=== PATIENT | female | born 1995 | race Caucasian/White ===

== ENCOUNTER 2018-08-26 15:13 | Inpatient (IN) ==
[2018-08-26] MEDS ORDERED: NS 1,000 ML IV ONE (16:06)
[2018-08-26] MEDS ORDERED: ZOFRAN IV ONE (16:06)
[2018-08-26 17:02] LABS: BASO# 0.02 X1000 (0.0-0.2); BASO% 0.2 % (0.0-0.8); EOS# 0.03 X1000 (0.0-0.7); EOS% 0.3 % (0.0-10.0); HEMATOCRIT 35.9 % (37.0-47.0); IMM GRAN# 0.02 X1000 (0.0-0.04); IMM GRAN% 0.2 % (0.0-0.5); LYMPH# 2.36 X1000 (1.2-3.4); LYMPH% 22.7 % (20.5-51.1); MCH 25.5 PG (27-31); MCHC 33.4 g/dL (33-37); MCV 76.2 FL (81-99); MONO# 0.78 X1000 (0.11-0.59); MONO% 7.5 % (1.7-9.3); MPV 9.9 FL (7.4-10.4); NEUT# 7.19 X1000 (1.4-6.5); NEUT% 69.1 % (42.2-75.2); PLT 367 X1000 (130-400); RBC 4.71 XMIL (4.2-5.4); RDW 14.3 % (11.5-14.5)
[2018-08-26 17:39] LABS: ACETAMINOPHEN < 1.2 ug/mL (10-30); AGAP 20; ALB/GLOB RATIO 1.4; ALBUMIN 4.6 g/dL (3.5-5.0); ALKALINE PHOSPHATASE 93 U/L (32-104); AMYLASE 26 U/L (20-200); BUN 19 mg/dL (8-22); CALCIUM 9.5 mg/dL (8.8-10.2); CHLORIDE 96 mmol/L (98-107); COSMO 275; CREATININE 2.1 mg/dL (0.5-0.9); ESTIMATED GFR 29; GLUCOSE 85 mg/dL (70-104); GOT 22 U/L (10-30); GPT 12 U/L (10-36); LIPASE 17 U/L (13-60); SALICYLATES < 3.00 mg/dL (3-10); SODIUM 137 mmol/L (136-145); TCO2 21 mmol/L (25-35); TOTAL BILIRUBIN 0.45 mg/dL (0.20-1.00); TOTAL PROTEIN 7.9 g/dL (6.3-8.3)
--- NOTE | 2018-08-26 17:55 | PROVIDER DOCUMENTATION ---
This chart was entered by Qiana King Scribe, acting as scribe for Mikel Rodas MD. HPI-Abdominal Pain/GI Problem - General Chief Complaint: Nausea/Vomiting Stated Complaint: DEHYDRATED/VOMITING Time Seen by Provider: 08/26/18 15:29 Source: patient Allergies/Adverse Reactions: Patient Allergies Allergy/AdvReac Type Severity Reaction Status Date / Time amoxicillin AdvReac ITCHING Verified 08/26/18 18:53 Home Medications: Home Medication List Medication Instructions Recorded Confirmed Last Taken Type NK [No Home Medications] 08/26/18 08/26/18 Unknown History - History of Present Illness-ABD Nature of Presenting Problems: 22 y/o female presents to ED with epigastric pain and N/V onset 2 days ago after ingesting 20 ounces of bleach. Pt reports hx depression/schizophrenia and multiple psych-related hospitalizations. Pt states she lost her apartment recently and has been living with her mother. Pt denies SI/HI. Pt reports she has hx methamphetamine abuse and she last used 2 weeks ago. Pt is alert and oriented. Abdominal Pain Onset Location: reports: epigastric Pain Radiation: reports: no radiation Quality of Pain: reports: sharp Severity in ED: reports: moderate Onset/Duration: reports: 2 days ago Timing: reports: still present Activities at Onset: reports: other (bleach ingestion) Exposure to sick contacts?: No Modifying Factors: improves with: nothing Associated Symptoms: reports: nausea, vomiting, other (epigastric pain) Last BM: unsure Dark Stools Present?: reports: none noticed Rectal Bleeding: reports: none Rectal Pain: reports: none Similar Symptoms Previously?: No Recently seen or treated by another doctor?: No Review of Systems - Adult - REVIEW OF SYSTEMS - ADULT Constitutional: denies: chills, fever Eyes: reports: no symptoms reported Ears, Nose, Mouth & Throat: reports: no symptoms reported Cardiovascular: denies: chest pain, palpitations Respiratory: denies: cough, shortness of breath Gastrointestinal: reports: abdominal pain, nausea, vomiting. denies: diarrhea Genitourinary: reports: no symptoms reported Musculoskeletal: denies: back pain, joint pain Integumentary: reports: no symptoms reported Neurological: denies: dizziness/vertigo, seizure Psychiatric: reports: no symptoms reported Endocrine: reports: no symptoms reported Hematologic/Lymphatic: reports: no symptoms reported Allergic/Immunologic: reports: no symptoms reported All Other Systems: Reviewed and Negative Past History - Adult - PAST MEDICAL HISTORY-ADULT Review of Records: reports: Old Records Reviewed, Nursing Assessment Review, Medications Reviewed Major Childhood Illnesses: reports: denies history Obstetrical/Gynecological: reports: PID/STD Psychiatric: reports: anxiety, depression, schizophrenia - PRIOR SURGERIES/PROCEDURES Surgical/Procedure History: reports: none - IMMUNIZATION STATUS Childhood Immunizations: See Nurse Assessment Flu Vaccine: See Nurse Assessment - FAMILY HISTORY Family History: reviewed, not pertinent - SOCIAL HISTORY Smoking: less than 1 pack/day Provider spent 3-5 mins advising pt. on dangers of tobacco.: Discussed manners to quit use, and f/u contacts for add'l counseling. Substance Use: none presently/history of abuse, amphetamines (meth) Alcohol Use Frequency: twice a week Living Situation: family Physical Exam-General - PHYSICAL EXAM-ADULT Initial Vital Signs Reviewed: Yes - CONSTITUTIONAL General Appearance: appears well, alert, anxious - EYES Eyes: PERRL/EOMI, pink conjunctivae - HEAD, EARS, NOSE, MOUTH & THROAT HENMT: normocephalic/atraumatic, moist mucous membranes, normal ENT inspection - NECK Neck: non-tender, full range of motion - RESPIRATORY Respiratory: chest non-tender, lungs clear, normal breath sounds - CARDIOVASCULAR Cardiovascular: normal peripheral pulses, regular rate, rhythm - GASTROINTESTINAL (ABDOMEN) Abdominal Exam: normal bowel sounds, non tender, soft - MUSCULOSKELETAL Back Exam: normal inspection, no CVA tenderness, no vertebral tenderness Extremity: normal range of motion, non-tender, normal gait - SKIN Integumentary: normal color, warm/dry - NEUROLOGIC Neurologic: grossly normal - PSYCHIATRIC Psych/Mental Status: normal mood/affect, normal thought content, normal thought process, oriented x 3, anxious Progress - PLAN OF CARE/RESULTS Progress/Plan/Lab Results: Vital Signs - 8 hr 08/26/18 15:14 Temperature 99.1 F Pulse Rate 99 H Respiratory Rate 22 Blood Pressure 145/75 O2 Sat by Pulse Oximetry 98 Orders Category Date Time Status FLAT/UPRIGHT ABD/1 VIEW CHEST [RAD] Stat Exams 08/26/18 16:08 Ordered cxr [CHEST-2 VIEWS] [RAD] Stat Exams 08/26/18 16:08 Ordered ACETAMINOPHEN [TDM] Stat Lab 08/26/18 16:06 Uncollected AMYLASE [CHEM] Stat Lab 08/26/18 16:07 Uncollected CBC WITH ELECTRONIC DIFF [HEME] Stat Lab 08/26/18 16:06 Uncollected CMP [COMPREHENSIVE METABOLIC PANEL] [CHEM] Stat Lab 08/26/18 16:06 Uncollected LIPASE [CHEM] Stat Lab 08/26/18 16:07 Uncollected SALICYLATES [TDM] Stat Lab 08/26/18 16:06 Uncollected URINE DRUG SCREEN Stat Lab 08/26/18 16:07 Uncollected 0.9% Sodium Chloride Inj [Ns] 1,000 ml Med 08/26/18 16:06 Active IV 999 mls/hr Ondansetron [Zofran] Med 08/26/18 16:06 Discontinued 8 mg IV NOW ONE Nursing staff consulted poison control at 15:20. Poison control recommended tox screen, GI consult, CBC/CMP, zofran, and fluids. Laboratory Tests 08/26/18 16:31 WBC 10.40 RBC 4.71 Hgb 12.0 Hct 35.9 L MCV 76.2 L MCH 25.5 L MCHC 33.4 RDW Std Deviation 14.3 Plt Count 367 MPV 9.9 Immature Gran % (Auto) 0.2 Neut % (Auto) 69.1 Lymph % (Auto) 22.7 Nelson % (Auto) 7.5 Eos % (Auto) 0.3 Baso % (Auto) 0.2 Immature Gran # (Auto) 0.02 Neut # (Auto) 7.19 H Lymph # (Auto) 2.36 Nelson # (Auto) 0.78 H Eos # (Auto) 0.03 Baso # (Auto) 0.02 Laboratory Tests 08/26/18 08/26/18 16:31 16:31 WBC 10.40 RBC 4.71 Hgb 12.0 Hct 35.9 L MCV 76.2 L MCH 25.5 L MCHC 33.4 RDW Std Deviation 14.3 Plt Count 367 MPV 9.9 Immature Gran % (Auto) 0.2 Neut % (Auto) 69.1 Lymph % (Auto) 22.7 Nelson % (Auto) 7.5 Eos % (Auto) 0.3 Baso % (Auto) 0.2 Immature Gran # (Auto) 0.02 Neut # (Auto) 7.19 H Lymph # (Auto) 2.36 Nelson # (Auto) 0.78 H Eos # (Auto) 0.03 Baso # (Auto) 0.02 Sodium 137 Potassium 4.0 Chloride 96 L Carbon Dioxide 21 L Anion Gap 20 BUN 19 Creatinine 2.1 H Estimated GFR/1.73 m2 29 BUN/Creatinine Ratio 9 Glucose 85 Calculated Osmolality 275 Calcium 9.5 Total Bilirubin 0.45 AST 22 ALT 12 Alkaline Phosphatase 93 Total Protein 7.9 Albumin 4.6 Globulin 3.3 Albumin/Globulin Ratio 1.4 Amylase 26 Lipase 17 Salicylates < 3.00 L Acetaminophen < 1.2 L Result Diagrams: 08/26/18 16:31 08/26/18 16:31 - EKG 1 Time of EKG reading by physician:: 17:53 EKG Read and Signed by:: Mikel Rodas EKG Interpretation (*Must complete 3 of following elements*): Normal Rate: 66 Rhythm: Sinus with marked sinus arrhythmia [place]: normal QRS: normal TN Interval: normal ST Wave: normal - XRAY 1 XRAY Study: Chest Impression: See EMR Report 2 XRAY Study: Abdomen Impression: See EMR Report - CONSULTS/PCP/HOSPITALIST Notification #1 *Consult/PCP/Hospitalist*: Dr. Olvera Time Discussed: 17:00 Reason/Comments: Bleach ingestion; JOSE Consult Disposition: Admit #2 Consult: Dr. Santoyo Time Discussed: 17:50 Reason/Comments: Bleach ingestion; JOSE Consult Disposition: Admit Departure - Departure Date of Disposition Decision: 08/26/18 Time of Disposition Decision: 17:50 DIAGNOSIS: JOSE (acute kidney injury), Tobacco use Bleach ingestion Qualifiers: Encounter type: initial encounter Injury intent: undetermined intent Qualified Code(s): T54.94XA - Toxic effect of unspecified corrosive substance, undetermined, initial encounter Abdominal pain Qualifiers: Abdominal location: unspecified location Qualified Code(s): R10.9 - Unspecified abdominal pain Vomiting Qualifiers: Vomiting type: unspecified Vomiting Intractability: non-intractable Nausea presence: with nausea Qualified Code(s): R11.2 - Nausea with vomiting, un specified Disposition: ADMITTED INPATIENT 09 Certified Medical Emergency: Emergent Condition: Serious - Critical Care Note This patient required my direct & personal management of CC.: No Attestation - Physician/ JUSTIN Attestation Patient care was provided by Advanced Practice Provider:: No The physician spent face to face time with patient:: Yes Advanced Practice Provider documentation review:: Supervising physician onsite and consulted in the evaluation and care of this patient. The physician did have a face to face encounter with the patient. This chart was documented by the indicated scribe, (Qiana King Scribe) and accurately reflects the services I performed and decisions made by me, Mikel Ruffin MD, as attested by the provider's signature.
--- NOTE | 2018-08-26 18:17 | Diag Imaging Result Doc PS360 ---
EXAM: ABDOMEN FLAT/UPRIGHT 08/26/2018 HISTORY: bleach ingestion, epigastric pain TECHNIQUE: Flat and upright abdomen COMMENT: There is a moderate amount of stool in the colon. Small bowel and stomach are not distended. There is no evidence of organomegaly or mass. There is curvature of the lumbar spine with convexity to the left. IMPRESSION: Mild constipation otherwise nonspecific abdomen. Electronically signed by Mir Baltazar 08/26/2018 6:15 PM
--- NOTE | 2018-08-26 18:18 | Diag Imaging Result Doc PS360 ---
EXAM: CHEST-2 VIEWS 08/26/2018 HISTORY: bleach ingestion, lower chest pain TECHNIQUE: AP and lateral chest COMMENT: There is curvature of the upper thoracic spine with convexity to the right. There is no evidence of acute cardiac or pulmonary disease. No previous studies are available for comparison. IMPRESSION: No acute disease. Electronically signed by Mir Baltazar 08/26/2018 6:16 PM
[2018-08-26] MEDS ORDERED: ZANTAC 50 MG in NS 50 ML IV ONE (18:25)
[2018-08-26 18:40] LABS: UR AMPHETAMINES QUAL PRESUMPTIVE POSITIVE (NONE DETECT); UR BARBITUATES QUAL NONE DETECTED (NONE DETECT); UR BENZODIAZEPIN QUAL NONE DETECTED (NONE DETECT); UR CANNABINOIDS QUAL NONE DETECTED (NONE DETECT); UR COCAINE QUAL NONE DETECTED (NONE DETECT); UR METHADONE QUAL NONE DETECTED (NONE DETECT); UR OPIATES QUAL NONE DETECTED (NONE DETECT); UR OXYCODONE QUAL NONE DETECTED (NONE DETECT); UR PCP QUAL NONE DETECTED (NONE DETECT)
[2018-08-26] MEDS: NS 1,000 ML IV SCH (18:40)
[2018-08-26] MEDS ORDERED: ZOFRAN IV PRN (19:58)
[2018-08-26 20:59] LABS: UR CREAT RANDOM 121.6 mg/dL (11-20)
[2018-08-27] MEDS ORDERED: OFIRMEV 1000 MG/ISOTONIC SOLN 1,000 MG/100 ML BOTTLE IV PRN (00:06)
--- NOTE | 2018-08-27 00:58 | HISTORY AND PHYSICAL ---
CHIEF COMPLAINT: Hematemesis, hemoptysis. HISTORY OF PRESENT ILLNESS: This is a 22-year-old female with extensive psychiatric history. She reports just depression, but also possibly schizophrenia. About 2 days ago, she reportedly drank 20 ounces of bleach. She has had some hematemesis. No hematochezia or anything to that effect. She has a lot of psychosocial stressors. She lost her apartment, she is living with her mother. Now, she denies current SI and homicidal ideation; however, she has had suicide attempts in the past, uncontrolled depression in the past. She has had methamphetamine abuse and she used that last 2 weeks ago. The patient is alert, oriented now. She says she does report bright red blood throwing up, but she is overall stable. The rest of her data was unremarkable, except for positive amphetamines. She will be admitted for possible upper GI bleed, chemical esophagitis. PAST MEDICAL HISTORY: Methamphetamine abuse, depression, possible underlying psychosis. We will continue to follow closely. She was admitted for that treatment. PAST SURGICAL HISTORY: Denies. FAMILY HISTORY: Reviewed, noncontributory. SOCIAL HISTORY: She does smoke. She does drink intermittently, and the amphetamine use, which is fairly regular. ALLERGIES: Amoxicillin. MEDICATIONS: None that are recorded. REVIEW OF SYSTEMS: Otherwise negative x10 point review of systems. PHYSICAL EXAM: VITAL SIGNS: Blood pressure was 127/101, heart rate 104, 83. She is afebrile. Respiratory rate 22. GENERAL: A well-developed female in no acute distress. HEENT: Head was normocephalic, atraumatic. Eye exam: Pupils equally round, reactive to light. Extraocular movements were intact. Sclerae are anicteric. NECK: Supple. CARDIOVASCULAR: Regular rate and rhythm. No murmurs, gallops, rubs. PULMONARY: Bilateral breath sounds, clear to auscultation. GASTROINTESTINAL: Soft, nontender, nondistended. Bowel sounds are positive. LABORATORY DATA: White count is 10, hemoglobin and hematocrit 12 and 35, MCV 76, platelets 367,000. Basic looked okay, except for creatinine 2.6. UDS positive for amphetamines. ASSESSMENT: This is a 22-year-old female with depression, possible underlying psychosis, presenting with an intentional drug overdose or chemical overdose of chlorine. We will follow. 1. Chlorine ingestion. We will continue to monitor. Continue supportive care. GI has been consulted for possible endoscopy, reveal she has got chemical esophagitis. 2. Acute kidney injury. We will continue hydration and follow closely. Check urine electrolytes, renal ultrasound, and monitor. Avoid nephrotoxic drugs. 3. Depression with possible psychotic features or associated schizophrenia. She will need psychiatric evaluation prior to discharge. We will continue to follow. cc: Philip Santoyo MD
[2018-08-27] MEDS: ZANTAC 50 MG in NS 50 ML IV SCH ×2 (01:34→10:09)
[2018-08-27] MEDS: NS 1,000 ML IV SCH ×3 (01:34→18:11)
[2018-08-27 06:20] LABS: BASO# 0.02 X1000 (0.0-0.2); BASO% 0.3 % (0.0-0.8); EOS# 0.11 X1000 (0.0-0.7); EOS% 1.6 % (0.0-10.0); HEMATOCRIT 34.9 % (37.0-47.0); HEMOGLOBIN 11.1 g/dL (12.0-16.0); LYMPH# 1.64 X1000 (1.2-3.4); LYMPH% 24.3 % (20.5-51.1); MCH 24.9 PG (27-31); MCHC 31.8 g/dL (33-37); MCV 78.4 FL (81-99); MONO# 0.56 X1000 (0.11-0.59); MONO% 8.3 % (1.7-9.3); MPV 10.3 FL (7.4-10.4); NEUT# 4.43 X1000 (1.4-6.5); NEUT% 65.5 % (42.2-75.2); PLT 313 X1000 (130-400); RBC 4.45 XMIL (4.2-5.4); RDW 14.7 % (11.5-14.5); WBC 6.76 X1000 (4.8-10.8)
[2018-08-27 06:36] LABS: ALB/GLOB RATIO 1.2; ALBUMIN 3.7 g/dL (3.5-5.0); CALCIUM 8.7 mg/dL (8.8-10.2); CREATININE 1.3 mg/dL (0.5-0.9); POTASSIUM 3.4 mmol/L (3.5-5.1); TOTAL BILIRUBIN 0.55 mg/dL (0.20-1.00); TOTAL PROTEIN 6.9 g/dL (6.3-8.3)
--- NOTE | 2018-08-27 07:33 | EKG Report ---
Test Performed on : 08/26/2018 5:52:02 PM Test Reason : overdose Blood Pressure : / mmHG Vent. Rate : 066 BPM Atrial Rate : 066 BPM P-R Int : 142 ms QRS Dur : 098 ms QT Int : 436 ms P-R-T Axes : 010 064 033 degrees QTc Int : 457 ms Sinus rhythm. with marked sinus arrhythmia. Otherwise normal ECG No previous ECGs available Unconfirmed Result
--- NOTE | 2018-08-27 09:51 | Diag Imaging Result Doc PS360 ---
EXAM: US RENAL 2 (RETROPER) COMPLETE 08/27/2018 HISTORY: shayla TECHNIQUE: Renal ultrasound COMMENT: There is no evidence of hydronephrosis or mass. The right kidney is 11.2 x 4.3 x 5.5 cm the left is 11 x 5.2 x 4.2 cm. The urinary bladder is not distended. IMPRESSION: No evidence of obstructive uropathy. Electronically signed by Mir Baltazar 08/27/2018 9:49 AM
[2018-08-27] MEDS ORDERED: SODIUM CHLORIDE 0.9% INJ SCH (11:15)
[2018-08-27] MEDS ORDERED: DIPRIVAN 1% ONE (11:46)
[2018-08-27] MEDS ORDERED: XYLOCAINE-MPF 2% ONE (11:47)
--- NOTE | 2018-08-27 12:18 | ENDOSCOPY OPERATIVE NOTE ---
[facility] ENDOSCOPY OPERATIVE NOTE , PATIENT: Monie Davis ADMISSION DATE: 08/27/2018 [id number] [facility] 1995 [id number] EGD PROCEDURE REPORT PROCEDURE DATE: 08/27/2018 SURGEON: Ryder Espitia MD STATUS: inpatient RN BARIATRIC: Bernadette Jones PREOPERATIVE DIAGNOSIS: The patient is a 22 yr old female here for an EGD due to coffee-ground emesi s and Bleach ingestion. PROCEDURE PERFORMED: EGD, diagnostic MEDICATIONS: Per Anesthesia TOPICAL ANESTHETIC: none CONSENT: The patient understands the risks and benefits of the procedure and understands that these r isks include, but are not limited to: sedation, allergic reaction, infection, perforation and/or bleeding. Alternative means of evaluation and treatment include, among others: physical exam, x-rays, and/or surgical intervention. The patient elects to proceed with this endoscopic procedure. HISORY AND PHYSICAL: 08/27/2018 function. Hand hygiene and appropriate measures for infection prevention was taken. After the risks, benefits and alternatives of the procedure were thoroughly explained, Informed consent was verified, confirmed and timeout was successfully executed by the treatment team. The patient was anesthetized with topical anesthesia and the [id number]-[id number] ([id number]) endoscope was introduced through the mouth and advanced to the second portion of the duoden um. Retroflexion was performed in the stomach and revealed no abnormalities. The gastroscope was then slowly withdraw n and removed. ESOPHAGUS: The mucosa of the esophagus appeared normal. STOMACH: Mild gastritis (inflammation) was found in the prepyloric region of the stomach. The stoma ch otherwise appeared normal. DUODENUM: The duodenal mucosa showed no abnormalities. SPECIMENS REMOVED: No ADVERSE EVENTS: There were no complications. POSTOPERATIVE DIAGNOSIS: 1. The mucosa of the esophagus appeared normal 2. Gastritis (inflammation) was found in the prepyloric region of the stomach 3. The stomach otherwise appeared normal 4. The duodenal mucosa showed no abnormalities RECOMMENDATIONS: 1. Resume pre-procedure medications 2. Resume regular diet 3. Return to floor when standard parameters are met REPEAT EXAM: Ryder Espitia MD eSigned: Ryder Espitia MD 08/27/2018 12:17 PM cc: PATIENT NAME: Monie Davis MR#: [id number]
[2018-08-27] MEDS ORDERED: KLOR-CON PO ONE (12:53)
[2018-08-27] MEDS: NEXIUM IV SCH (12:57)
--- NOTE | 2018-08-27 14:35 | GASTROENTEROLOGY CONSULTATION ---
DATE: 08/27/2018 REASON FOR CONSULTATION: Questionable hematemesis, ingestion of bleach. HISTORY OF PRESENT ILLNESS: This is a 22-year-old female with a psychiatric history and history of suicidal attempts in the past. Patient states on Thursday she swallowed 20 ounces of bleach and also swallowed methamphetamines, reported as an "8 ball." She has had some vomiting and noticed some blood. She currently denies abdominal pain. The patient states that she intend to harm herself. PAST MEDICAL HISTORY: Depression, psychiatric disorder, drug abuse. PAST SURGICAL HISTORY: None reported. ALLERGIES: Amoxicillin causing itching. HOME MEDICATIONS: None reported. SOCIAL HISTORY: Positive for tobacco use. Occasional alcohol use. Reports methamphetamine use REVIEW OF SYSTEMS: Per history of present illness. PHYSICAL EXAMINATION: Vital Signs: Temperature 98.8 degrees, pulse 81, respirations 21, blood pressure 121/85. General: Patient is awake, alert, in no acute distress. HEENT: Normocephalic atraumatic. Pupils equal, round, reactive to light. Sclerae nonicteric. Respiratory: Lung sounds clear. Cardiovascular: Regular rate and rhythm. Abdomen: Soft, nontender. Positive bowel sounds. DIAGNOSTIC RESULTS: Laboratory: Hematology: WBC 6.76, hemoglobin 11.1, hematocrit 34.9, MCV 78.4, MCH 24.9, platelet 313,000. Chemistry: Sodium 140, potassium 3.4, chloride 106, CO2 21, BUN 15, creatinine 1.3, glucose 77, calcium 8.7, total bilirubin 0.55, AST 19, ALT 9, alkaline phosphatase 74, amylase 26, lipase 17. TSH 0.78. Toxicology: Salicylates less than 3.0, acetaminophen less than 1.2, positive for amphetamines. Imaging renal ultrasound showed no evidence of obstructive uropathy. Abdominal x-ray showed mild constipation. ASSESSMENT AND PLAN: 1. Recent bleach ingestion. 2. Acute kidney injury. Patient has had IV hydration. Renal ultrasound done. 3. Suicidal intent this with history of psychiatric disorder. I believe she will have a psychiatric evaluation once stable. 4. Will change her from Zantac to proton pump inhibitor. Patient has been held NPO. We will proceed with esophagogastroduodenoscopy for evaluation due to recent bleach ingestion. I have discussed the procedure along with benefits and risks with the patient. She wishes to proceed. Her mother was also at the bedside. I have discussed this case with Dr. Espitia. Further plans will be made according to findings. Thank you for this consultation. Dictated by PHILLIP Yuan for Ryder Espitia MD cc: PHILLIP Farris MD [facility]
--- NOTE | 2018-08-27 15:19 | PROGRESS NOTE ---
DATE: 08/27/2018 SUBJECTIVE: The patient has no complaints. She seems better. OBJECTIVE: Blood pressure 121/85, heart rate 81, respiratory rate 21, and temperature was 98.8 degrees.Cardiovascular: Regular rate and rhythm. No murmurs, gallops, or rubs. Pulmonary: Bilateral breath sounds. Clear to auscultation. GI: Soft, nontender, and nondistended. Bowel sounds are positive. LABORATORY DATA: Her white count is 6. Hemoglobin and hematocrit 11 and 34, platelets 313,000. Potassium 3.4, creatinine 1.3, and TSH normal. PROBLEM LIST: 1. Acute kidney injury that seems improved. We will continue hydration and follow. 2. Esophagitis, gastritis associated with possible chlorine ingestion. Her EGD really was unremarkable. Thankfully, she seems stable. We are going to keep her on a PPI and follow. 3. Suicidal ideation. History of depression, possible with psychotic features versus a primary psychotic disorder. She is doing okay. From that standpoint, she stopped her own medications several months back. I think she will need psychiatric evaluation prior to discharge. We are just not available yet. It is anticipated if she is stable tomorrow, we will pursue psych evaluation. cc: Philip Santoyo MD
[2018-08-27] MEDS: TYLENOL PO PRN (15:24)
[2018-08-28] MEDS: NEXIUM IV SCH ×2 (00:55→12:05)
[2018-08-28] MEDS: NS 1,000 ML IV SCH ×2 (03:38→11:00)
[2018-08-28] MEDS: TYLENOL PO PRN (04:33)
[2018-08-28 06:19] LABS: BASO# 0.01 X1000 (0.0-0.2); BASO% 0.1 % (0.0-0.8); EOS# 0.11 X1000 (0.0-0.7); EOS% 1.6 % (0.0-10.0); HEMATOCRIT 30.1 % (37.0-47.0); HEMOGLOBIN 9.4 g/dL (12.0-16.0); LYMPH# 2.02 X1000 (1.2-3.4); LYMPH% 29.1 % (20.5-51.1); MCH 24.8 PG (27-31); MCHC 31.2 g/dL (33-37); MCV 79.4 FL (81-99); MONO# 0.37 X1000 (0.11-0.59); MONO% 5.3 % (1.7-9.3); MPV 10.3 FL (7.4-10.4); NEUT# 4.42 X1000 (1.4-6.5); NEUT% 63.9 % (42.2-75.2); PLT 298 X1000 (130-400); RBC 3.79 XMIL (4.2-5.4); RDW 14.5 % (11.5-14.5); WBC 6.93 X1000 (4.8-10.8)
[2018-08-28 06:43] LABS: AGAP 10; BUN 10 mg/dL (8-22); CALCIUM 8.1 mg/dL (8.8-10.2); CHLORIDE 110 mmol/L (98-107); COSMO 278; CREATININE 0.7 mg/dL (0.5-0.9); ESTIMATED GFR > 60; GLUCOSE 89 mg/dL (70-104); POTASSIUM 3.9 mmol/L (3.5-5.1); SODIUM 140 mmol/L (136-145); TCO2 20 mmol/L (25-35)
[2018-08-28] MEDS ORDERED: WELLBUTRIN PO ONE (14:01)
[2018-08-28 14:06] VITALS: BP 128/89
--- NOTE | 2018-08-28 15:48 | DISCHARGE SUMMARY ---
ADMISSION DATE: 08/26/2018 DISCHARGE DATE: 08/28/2018 SUBJECTIVE: Patient has no focal complaints. She is looking well, tolerating p.o. She actually has good affect. DISCHARGE DIAGNOSIS: 1. Chlorine ingestion. 2. Suicidal ideation. 3. History of depression, possible psychosis although she did not have any clear psychotic features this admission. 4. Gastritis. 5. Acute kidney injury. CONSULTATIONS: Robi Boykin evaluation but by a screener. Briefly this 22-year-old female presenting with abdominal pain. She had some hematemesis and she had a creatinine of 2.1. She was given gentle hydration, improved, was down to 1.3 and down to 0.7. UDS positive for amphetamines, which is a chronic use for her. Overall she improved. She did undergo endoscopy procedure, she had an EGD which showed some mild gastritis in the prepyloric region in the stomach but no significant damage from her chlorine ingestion which was again about 2 to 3 days before admission and she seems to be doing okay. We did have psychiatric evaluation and they felt that she did not meet inpatient criteria, did not need to go to their facility and that she did not need to be placed in anything besides a possible longterm house. Patient did not want to pursue longterm house. She was going to go home with her boyfriend I believe. Social Work did evaluate her and recommended some longterm house treatments which she was given contact information and she also documented she did not want placements in hospital or dual diagnosis facility. I did go ahead and start her on some Wellbutrin which will do 100 b.i.d. and Prilosec 40 and we will get Social Work to help with her longterm house placement which apparently will be Thursday. The patient did not want to stay till Thursday to get that evaluated but will follow up with Social Work on Thursday for that purpose. cc: Philip Santoyo MD
== END 2018-08-28 15:24 | disposition home or self-care (01) | DRG 918 ==
LOC: ED 15:13 → ICU 18:29
PROVIDERS: ATTEND Internal Medicine
CPT/HCPCS: 71020; 71046; 74019; 74020; 76770; 80048; 80053; 80101; 80196; 80301; 80307; 80324; 80329; 80345; 80346; 80353; 80358; 80361; 80365; 82003; 82150; 82570; 83690; 83992; 84300; 84443; 85025; 93005; A9270; G0431; G0434; G0479; G0480; G6038; G6039; J2405; J2780; J7030